=== PATIENT | male | born 1975 | race Caucasian/White ===

== ENCOUNTER 2018-03-02 10:33 | Inpatient (IN) | payer OTHER ==
[2018-03-02 10:45] VITALS: BMI 34.4
--- NOTE | 2018-03-02 11:23 | PDOC ---
History of Present Illness - History of Present Illness Initial Comments: 03/02/18 13:06 The patient is a 42 year old male with a significant PMH of HTN and HLD not currently on medications presenting with right arm weakness since awakening around 8:30 AM this morning. The patient states he woke up and was brushing his teeth when he noticed his R arm was 'all over the place', also when he said good morning to his , it sounded a bit off. Patient is also complaining of associated nausea, slight dizziness, and tightness behind the back of the neck. Patient reports that he was in his usual state of health yesterday. Patient denies any recent accidents or head trauma. The patient denies chest pain, shortness of breath, and headache. Denies fever, chills, vomit, diarrhea and constipation. Denies dysuria, frequency, urgency and hematuria. Allergies: NKA Past surgical history: None reported. Social history: No reported alcohol, drug, or cigarette use. PCP: Dr. Clark <Shawnee Little - Last Filed: 03/02/18 13:06> - General History Source: Patient Exam Limitations: No Limitations <Jony Flores - Last Filed: 03/02/18 18:30> - General Chief Complaint: CVA/TIA Stated Complaint: CVA/TIA Time Seen by Provider: 03/02/18 10:50 NIH Stroke Scale - Last Known Well Date/Time & Onset Date Last Known Well: 03/01/18 Time Last Known Well: 22:00 - Initial Evaluation Level of consciousness: Alert Ask patient the month and their age: Answers both correctly Ask patient to open & close eyes; make fist and let go: Obeys both correctly Best gaze (horizontal eye movement): Normal Visual field testing: No visual field loss Facial paresis (Show teeth/raise eyebrows/close eyes tight): Normal symmetrical movement Motor Function: Left Arm: Normal Motor Function: Right Arm: Normal (extends arm 90 (or 45) degrees for 10 seconds without drift Motor Function: Left Leg: Normal (extends leg 30 degrees for 5 seconds without drift) Motor Function: Right Leg: Normal (extends leg 30 degrees for 5 seconds without drift) Limb Ataxia: No ataxia Sensory(Use pinprick test arms,legs,trunk,face/side to side): Normal Best language (Describe picture, name items, read sentences): No Aphasia Dysarthria (read several words): Mild to moderate slurring of words Extinction and Inattention: No abnormality - Total Score NIH Stroke Scale Score: 1 <Jony Flores - Last Filed: 03/02/18 18:30> tPA Exclusion Checklist 0-3hr - Time Elapsed Date last known well: 03/01/18 Time last known well: 22:00 Elaspsed time: Day(s) and 20 Hour(s) and 29 Minutes - Thrombolytic Therapy Candidate Is the patient eligible for Thrombolytic Therapy?: No - Ineligibility reason(s) Reasons No tPA given: Outside of window - delayed arrival <Jony Flores - Last Filed: 03/02/18 18:30> Past History <Shawnee Little - Last Filed: 03/02/18 13:06> - Past Medical History COPD: No DVT: No HTN: Yes Hypercholesterolemia: Yes - Immunization History Immunization Up to Date: Yes - Suicide/Smoking/Psychosocial Hx Smoking History: Current every day smoker Number of Cigarettes Smoked Daily: 2 Information on smoking cessation initiated: No Hx Alcohol Use: Yes Drug/Substance Use Hx: No Substance Use Type: None <Jony Flores - Last Filed: 03/02/18 18:30> - Past Medical History Allergies/Adverse Reactions: Allergies Allergy/AdvReac Type Severity Reaction Status Date / Time Penicillins Allergy Verified 03/02/18 14:47 Home Medications: Ambulatory Orders NK [No Known Home Medication] 03/02/18 Review of Systems - Review of Systems Able to Perform ROS?: Yes Comments:: 03/02/18 13:06 "CONSTITUTIONAL: No reported: Fever, Chills, Diaphoresis, Generalized Weakness, Malaise, Loss of Appetite HEENT: No reported: Rhinorrhea, Nasal Congestion, Throat Pain, Throat Swelling, Difficulty Swallowing, Mouth Swelling, Ear Pain, Eye Pain, Visual Changes CARDIOVASCULAR: No reported: Chest Pain, Syncope, Palpitations, Irregular Heart Rate, Lightheadedness, Peripheral Edema RESPIRATORY: No reported: Cough, Shortness of Breath, SOB with Exertion, Orthopnea, Wheezing , Stridor, Hemoptysis GASTROINTESTINAL: No reported: Abdominal pain, Abdominal Distension, Vomiting, Diarrhea, Constipation, Melena, Hematochezia Reported: Nausea. GENITOURINARY: No reported: Dysuria, Frequency, Urgency, Hesitancy, Flank Pain, Genital Pain MUSCULOSKELETAL: No reported: Myalgia, Arthralgia, Joint Swelling, Back pain, Neck Pain SKIN: No reported: Rash, Itching, Pallor HEMEATOLOGIC/IMMUNOLOGIC: No reported: Easy Bleeding, Easy Bruising, Lymphadenopathy, Frequent infections ENDOCRINE: No reported: Unexplained Weight Gain, Unexplained Weight Loss, Heat Intolerance , Cold Intolerance NEUROLOGIC: No reported: Headache, Paresthesias, Lightheadedness, Unsteady Gait, Seizure, Mental Status Changes, Incontinence Reported: Dizziness. Right arm weakness. PSYCHIATRIC: No reported: Anxiety, Depression " <Shawnee Little - Last Filed: 03/02/18 13:06> *Physical Exam - Vital Signs Last Vital Signs Temp Pulse Resp BP Pulse Ox 98.6 F 84 18 152/105 100 03/02/18 10:41 03/02/18 10:41 03/02/18 10:41 03/02/18 10:41 03/02/18 10:41 - Physical Exam Comments: 03/02/18 13:07 "GENERAL: The patient is awake, alert, and fully oriented, Nontoxic - in no acute distress. HEAD: Normocephalic, atraumatic. EYES: extraocular movements intact, sclera anicteric, conjunctiva clear. ENT: Normal voice, Moist mucous membranes. NECK: Normal range of motion, supple LUNGS: Breath sounds equal, clear to auscultation bilaterally. No wheezes, no rhonchi, no rales. HEART: Regular rate and rhythm, without murmur, rub or gallop. ABDOMEN: Soft, nontender, No guarding, no rebound.No CVA tenderness EXTREMITIES: Normal range of motion, no edema. No cyanosis. No erythema, or tenderness. PSYCH: Normal mood, normal affect. SKIN: Warm, Dry, normal turgor NEURO: Mental status: The patient is oriented x3. Cranial nerves: Cranial nerves II through XII are intact, slight slurring of speech Motor: The upper extremities are 5 over 5 in all muscle groups. The lower extremities are 5 over 5 in all muscle groups. Negative pronator drift Sensation: Sensation is intact to light touch throughout. romberg negative Cerebellar: Efnejj-upmnre-vjfe is normal in both upper extremities. rapid alternating movements are normal. Gait: Normal. Heel and toe walking are normal." <Shawnee Little - Last Filed: 03/02/18 13:06> - Vital Signs Last Vital Signs Temp Pulse Resp BP Pulse Ox 98.6 F 84 18 152/105 100 03/02/18 10:41 03/02/18 10:41 03/02/18 10:41 03/02/18 10:41 03/02/18 10:41 <Jony Flores - Last Filed: 03/02/18 18:30> Heart Score/ECG Review - ECG Impressions Comment:: 03/02/18 18:29 Twelve-lead EKG was performed and reviewed by me. There is normal sinus rhythm with a normal rate. Rate of 78 The axis is normal. The intervals are normal. No ST-T wave changes suggestive of acute ischemia <Jony Flores - Last Filed: 03/02/18 18:30> ED Treatment Course - LABORATORY CBC & Chemistry Diagram: 03/02/18 12:00 03/02/18 12:02 - ADDITIONAL ORDERS Additional order review: Laboratory Results 03/02/18 03/02/18 12:36 12:00 PT with INR 11.60 INR 1.03 Urine Color Ltyellow Urine Appearance Clear Urine pH 5.0 Ur Specific [place] 1.016 Urine Protein Negative Urine Glucose (UA) Negative Urine Ketones Negative Urine Blood Negative Urine Nitrite Negative Urine Bilirubin Negative Urine Urobilinogen Negative Ur Leukocyte Esterase Negative 03/02/18 12:00 RBC 5.45 MCV 86.6 MCHC 34.1 RDW 13.6 MPV 9.1 Neutrophils % 60.0 Lymphocytes % 29.2 Monocytes % 6.8 Eosinophils % 2.5 Basophils % 1.5 <Shawnee Little - Last Filed: 03/02/18 13:06> - LABORATORY CBC & Chemistry Diagram: 03/02/18 12:00 03/02/18 12:02 - RADIOLOGY Radiology Studies Ordered: Category Date Time Status HEAD CT WITHOUT CONTRAST [CT] Stat CT Scan 03/02/18 11:12 Ordered CHEST X-RAY PORTABLE* [RAD] Stat Radiology 03/02/18 11:12 Ordered <Jony Flores - Last Filed: 03/02/18 18:30> Medical Decision Making - Medical Decision Making 03/02/18 11:19 42y M hx of htn, hl (not on meds) presents with R arm weaknes and dysarthria since awakening this morning, pt noticed it when he went to brush his teeth and say good morning to his . Pt notes he was fine last night. denies any other complaints including cp, sob, vision changes, fever/chills. pt notes mild tension on his posterios scalp. ?cva / tia pts speech seems slightly dysarhtric ( notes it is different) strength is symmetric, however his rapid alternating movements are a bit slower will obtain ct head, labs NIHSS = 1 <Jony Flores - Last Filed: 03/02/18 18:30> *DC/Admit/Observation/Transfer - Attestations Scribe Attestion: 03/02/18 13:07 Documentation prepared by Shawnee Little, acting as medical billing clerk for Jony Flores MD. <Shawnee Little - Last Filed: 03/02/18 13:06> - Discharge Dispostion Decision to Admit order: Yes <Jony Flores - Last Filed: 03/02/18 18:30> Diagnosis at time of Disposition: TIA (transient ischemic attack) - Discharge Dispostion Condition at time of disposition: Stable
[2018-03-02 12:12] LABS: BASO % 1.5 % (0-2.0); EOS % 2.5 % (0-4.5); HEMATOCRIT 47.2 % (35.4-49); HEMOGLOBIN 16.1 GM/dL (11.7-16.9); LYMPH % 29.2 % (8-40); MCH 29.5 pg (25.7-33.7); MCHC 34.1 g/dl (32.0-35.9); MEAN CELL VOLUME 86.6 fl (80-96); MEAN PLT VOLUME 9.1 fl (7.5-11.1); MONO % 6.8 % (3.8-10.2); PLATELET COUNT 266 K/MM3 (134-434); RBC 5.45 M/mm3 (4.00-5.60); RDW 13.6 % (11.9-15.9); WHITE BLOOD COUNT 8.3 K/mm3 (4.0-10.0)
[2018-03-02 12:28] LABS: INR 1.03 (0.83-1.09); PROTHROMBIN TIME (PATIENT) 11.6 SEC (9.7-13.0)
[2018-03-02 12:49] LABS: ALK PHOS 108 U/L (45-117); ANION GAP 8 MMOL/L (8-16); BILIRUBIN,TOTAL 0.5 mg/dL (0.2-1.0); BLOOD UREA NITROGEN 11 mg/dL (7-18); CALCIUM 8.9 mg/dL (8.5-10.1); CHLORIDE 104 mmol/L (98-107); CO2 25 mmol/L (21-32); CREATININE 0.9 mg/dL (0.7-1.3); GLUCOSE,RANDOM 94 mg/dL (74-106); SGPT/ALT 59 U/L (12-78); SODIUM 137 mmol/L (136-145); TOT PROT 8.2 g/dl (6.4-8.2)
[2018-03-02 12:58] LABS: URINE APPEARANCE CLEAR; URINE BILIRUBIN NEGATIVE (<2.0 mg/dL); URINE COLOR LTYELLOW; URINE GLUCOSE (UA) NEGATIVE (NEGATIVE); URINE KETONE NEGATIVE (NEGATIVE); URINE LEUK ESTERASE NEGATIVE (NEGATIVE); URINE NITRITE NEGATIVE (NEGATIVE); URINE PROTEIN NEGATIVE (NEGATIVE); URINE UROBILINOGEN NEGATIVE mg/dL (0.2-1.0)
[2018-03-02 13:14] LABS: MAGNESIUM 2.4 mg/dL (1.8-2.4); POTASSIUM 4.4 mmol/L (3.5-5.1); SGOT/AST 30 U/L (15-37)
[2018-03-02] MEDS ORDERED: ASPIRIN 81 MG CHEWABLE TABLETS PO ONE (13:49)
--- NOTE | 2018-03-02 14:47 | HP ---
Admitting History and Physical - Primary Care Physician PCP: Jay Clark - Admission Chief Complaint: My arm is weak History of Present Illness: Mr Akers is a very pleasant 42 year old male who comes in with arm weakness. He says he woke up this morning and his R arm was feeling weak and a little numb. He assumed he slept on it incorrectly and got up to brush his teeth. He said while brushing his teeth his arm continued to feel weak and also uncoordinated. He decided to go to work and while on the phone he noticed that his speech was different. He says he felt like he had difficulty forming the words and that his tongue was numb. He also had a moment of nausea without vomiting and lightheadedness with the nausea. This did not last long and resolved. He also says he feels a fullness in the back of his head. The weakness and difficulty speaking is currently there. He called to make an appointment with Dr Clark but was instructed to come here. Aside from this he is without complaint. He denies fevers, chills, passing out, facial droop, changes in vision or hearing, drooling, chest pain, shortness of breath, abdominal pain, difficulty or pain on urination, constipation, diarrhea, leg swelling, numbness, tingling, or weakness outside of his right arm. History Source: Patient Limitations to Obtaining History: No Limitations - Past Medical History Cardiovascular: Yes: HTN, Hyperlipdemia - Past Surgical History Past Surgical History: Yes: None - Smoking History Smoking history: Current every day smoker Aproximately how many cigarettes per day: 2 - Alcohol/Substance Use Hx Alcohol Use: Yes History of Substance Use: reports: None - Social History Usual Living Arrangement: Yes: With Spouse ADL: Independent History of Recent Travel: No Home Medications - Allergies Allergies/Adverse Reactions: Allergies Allergy/AdvReac Type Severity Reaction Status Date / Time Penicillins Allergy Verified 03/02/18 14:47 - Home Medications Home Medications: Ambulatory Orders NK [No Known Home Medication] 03/02/18 Family Disease History - Family Disease History Family Disease History: Diabetes: Mother, Heart Disease: Mother, CA: Mother, Other: Grandparent (aneurysm-), Father (aneurys-did at 53) Review of Systems Findings/Remarks: full review of systems obtained, as per HPI and otherwise negative Physical Examination Vital Signs: Vital Signs Temperature 37.0 C 08/22/18 10:41 Pulse Rate 84 03/02/18 10:41 Respiratory Rate 18 03/02/18 10:41 Blood Pressure 152/105 03/02/18 10:41 O2 Sat by Pulse Oximetry (%) 100 03/02/18 10:41 Constitutional: Yes: Well Nourished, No Distress, Calm Eyes: Yes: Conjunctiva Clear, EOM Intact, PERRL HENT: Yes: Atraumatic, Normocephalic Neck: Yes: Supple Cardiovascular: Yes: Regular Rate and Rhythm. No: Gallop, Murmur, Rub Respiratory: Yes: Regular, CTA Bilaterally. No: Rales, Rhonchi, Wheezes Gastrointestinal: Yes: Normal Bowel Sounds, Soft. No: Distention, Tenderness Extremities: Yes: WNL Edema: No Labs: CBC, BMP 03/02/18 12:00 03/02/18 12:02 Imaging - Results Chest X-ray: Report Reviewed, Image Reviewed Cat Scan: Report Reviewed, Image Reviewed Problem List - Problems (1) TIA (transient ischemic attack) Assessment/Plan: -patient presents with symptoms of TIA -possible acute CVA or atypical migraine -considering family history, will also consider aneurysm -admit to telemetry under observation -MRI ordered -will obtain MRA as well -ECHO and carotid ultrasound -no deficit noted, does not need speech therapy or physical therapy -continue aspirin Code(s): G45.9 - TRANSIENT CEREBRAL ISCHEMIC ATTACK, UNSPECIFIED (2) HTN (hypertension) Assessment/Plan: -currently diet controlled -monitor today, may need to start treatment Code(s): I10 - ESSENTIAL (PRIMARY) HYPERTENSION (3) HLD (hyperlipidemia) Assessment/Plan: -check lipid panel -start lipitor 10mg qhs Code(s): E78.5 - HYPERLIPIDEMIA, UNSPECIFIED
[2018-03-02] MEDS ORDERED: ASPIRIN 81 MG CHEWABLE TABLETS ONE (14:50)
--- NOTE | 2018-03-02 17:43 | EKG ---
Test Reason : Blood Pressure : / mmHG Vent. Rate : 078 BPM Atrial Rate : 078 BPM P-R Int : 158 ms QRS Dur : 096 ms QT Int : 376 ms P-R-T Axes : 055 005 005 degrees QTc Int : 428 ms NORMAL SINUS RHYTHM CANNOT RULE OUT ANTERIOR INFARCT , AGE UNDETERMINED ABNORMAL ECG NO PREVIOUS ECGS AVAILABLE Confirmed by MIKAYLA BROOKE MD ([id number]) on 03/02/2018 5:43:04 PM Referred By: Confirmed By:MIKAYLA BROOKE MD
--- NOTE | 2018-03-02 18:56 | CON.NEURO ---
Consult - Past Medical History Cardio/Vascular: Yes: HTN, Hyperlipdemia - Past Surgical History Past Surgical History: Yes: None - Alcohol/Substance Use Hx Alcohol Use: Yes History of Substance Use: reports: None - Smoking History Smoking history: Current every day smoker Aproximately how many cigarettes per day: 2 - Social History ADL: Independent History of Recent Travel: No Home Medications - Allergies Allergies/Adverse Reactions: Allergies Allergy/AdvReac Type Severity Reaction Status Date / Time Penicillins Allergy Verified 03/02/18 14:47 - Home Medications Home Medications: Ambulatory Orders NK [No Known Home Medication] 03/02/18 Family Disease History - Family Disease History Family Disease History: Diabetes: Mother, Heart Disease: Mother, CA: Mother, Other: Grandparent (aneurysm-), Father (aneurys-did at 53) Physical Exam-Neuro Vital Signs: Vital Signs Temperature 98.6 F 03/02/18 10:41 Pulse Rate 84 03/02/18 10:41 Respiratory Rate 18 03/02/18 10:41 Blood Pressure 152/105 03/02/18 10:41 O2 Sat by Pulse Oximetry (%) 100 03/02/18 10:41 Labs: CBC, BMP 03/02/18 12:00 03/02/18 12:02 INR, PTT INR 1.03 (0.83-1.09) 03/02/18 12:00 Assessment/Plan cc Right arm incoordination and slurring of slurring of speech since morning of February HPI 42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 Today morning he woke up with some incoordination of right arm and find it difficult to do brush his teeth and later he went to work and still felt that he was not 100 percent. He came to ed. He was interviewed with his , he also smokes. He still feel coordination and speech is not back to normal. He feel slight headhace back of his head. His father of brain aneurysm ( diagnosed at autopsy ) in [place]. PMH as above. SH smoker ROS,FH reviewed in chart - Allergies Allergies/Adverse Reactions: Allergies Allergy/AdvReac Type Severity Reaction Status Date / Time Penicillins Allergy Verified 03/02/18 14:47 Neurological Examination Alert oriented x 3, speech is normal ( he and his feels speech is not 100% back to normal and feel slurring of speech) he has no difficulty repeating , naming objects no face asymmetry, eomi pupils reactive moving all extremity slight dysmetria on right upper extremity sensation is normal BP at admission 152/101 , passed swallowing test ct unremarkable, waiting for mri of brain and mra Assessment Left mca stroke , Plan- mri of brain and mra -smoking cessation, life style modificaitons, stroke education - echo and carotid imaging - continue aspirin and statin - hold bp medicaiton, once after 24 , if bp remains high consider anti hypertensive medication - tele monitoring - dvt prophylaxis, and PT Thanking you so much Bertrand Almanza MD
--- NOTE | 2018-03-02 20:32 | ECHO ---
Name: SHARRON YEPEZ Exam:Adult Echocardiogram Study Date: 03/02/2018 03:04 PM Age: 42 yrs Reason For Study: TIA Height: 67 in Weight: 220 lb BSA: 2.1 m2 MMode/2D Measurements & Calculations IVSd: 0.98 cm Ao root diam: 3.5 cm LVIDd: 4.2 cm LA dimension: 3.1 cm LVIDs: 3.0 cm LVPWd: 0.85 cm EDV(Teich): 76.6 ml ESV(Teich): 35.7 ml Doppler Measurements & Calculations MV E max balta: 42.0 cm/sec Med Peak E' Balta: 7.2 cm/sec MV A max balta: 52.3 cm/sec Med E/e': 5.8 MV E/A: 0.80 Lat Peak E' Balta: 10.4 cm/sec Lat E/e': 4.0 Left Ventricle The left ventricular size, thickness and function are normal. The left ventricular ejection fraction is normal. Ejection Fraction = 50%. The transmitral spectral Doppler flow pattern is suggestive of impai red LV relaxation. No regional wall motion abnormalities noted. Right Ventricle The right ventricular systolic function is normal. Atria Normal left and right atrial size and function. Tricuspid Valve There is trace tricuspid regurgitation. Great Vessels The aortic root is normal size. Pericardium/Pleura There is no pericardial effusion. Interpretation Summary The left ventricular size, thickness and function are normal The left ventricular ejection fraction is normal. Ejection Fraction = 50%. The transmitral spectral Doppler flow pattern is suggestive of impaired LV relaxation. No regional wall motion abnormalities noted. The right ventricular systolic function is normal. Normal left and right atrial size and function. The aortic root is normal size. There is no pericardial effusion. Matthew Lui MD 03/02/2018 08:32 PM
[2018-03-02] MEDS: ATORVASTATIN CA 80 MG TABLET (FP) PO SCH (21:34)
[2018-03-02] MEDS ORDERED: ATORVASTATIN CA 10 MG TABLET (FP) PO SCH (22:00)
--- NOTE | 2018-03-03 06:52 | PN ---
Progress Note (short form) - Note Progress Note: NEUROSURGERY CONSULT DICTATED Chart reviewed Pt examined MRI/MRA/CT reviewed c/o arm weakness and numbness with decreased R UE coordination yesterday AM. He noticed that his speech was different, with difficulty forming the words and that his tongue was numb. Transient nausea. [place] fullness in the back of his head. No diplopia, balance problem, C/P, LOC, dyspnea. Family h/o aneurysm. Denies recent had/neck injury. Feels less head pressure today and speech feels normal to him this AM. R arm also better. WBC 8.3, Hgb 16.1, INR 1.03; BUN 11, Cr 0.[address]- no acute bleed, no fracture, no HCP Brain MRI- acute R cerebellar vermis ischemia, mild chronic periventricular dz; no obvious mass lesion, No HCP Brain MRA- an aneurysm, AVM, stenosis, or dissection Probable cardioembolic event or systemic conditions (HTN, hypercholesterolemia, etc) causing recent CVA given acute posterior circulation ischemia and prior supertenorial (anterior circulation) microvascular changes, in face of normal brain MRA Consider cardiac eval (echo) Cardiac risk factor modification- weight reduction, health diet, exercise PT for gait eval
[2018-03-03 08:03] LABS: EOS % 2.8 % (0-4.5); HEMATOCRIT 44.5 % (35.4-49); HEMOGLOBIN 15.1 GM/dL (11.7-16.9); LYMPH % 31.7 % (8-40); MCH 29.2 pg (25.7-33.7); MCHC 33.8 g/dl (32.0-35.9); MEAN CELL VOLUME 86.3 fl (80-96); MEAN PLT VOLUME 8.8 fl (7.5-11.1); NEUT % 57.5 % (42.8-82.8); PLATELET COUNT 236 K/MM3 (134-434); RBC 5.16 M/mm3 (4.00-5.60); RDW 13.6 % (11.9-15.9)
--- NOTE | 2018-03-03 08:08 | CONS ---
DATE OF CONSULTATION: DATE OF DICTATION: 03/03/2018 REQUESTING PHYSICIAN: Bertrand Donovan MD CHIEF COMPLAINT: CVA. HISTORY OF PRESENT ILLNESS: The patient is a 42-year-old right-handed male with a history of hypertension and hypercholesterolemia who had complained of transient increasing head fullness sensation, mild nausea, as well as transient decreased right arm dexterity and coordination with subjective weakness and numbness, who was admitted for further evaluation and treatment. He had a history of the aforementioned medical problems, and they are generally under good control by his report. He takes Lipitor at baseline. He works in construction. He denies any significant headache otherwise and has no vomiting, seizure activity, focal weakness. His symptoms have improved since his admission. CT scan initially was noncontributory which led to an MRI examination. PAST MEDICAL HISTORY: Significant for hypertension, hypercholesterolemia. MEDICATIONS: Lipitor. ALLERGIES: PENICILLIN. SOCIAL HISTORY: Does not smoke and only drinks alcohol socially. He works as a construction ironworker. He lives at home. REVIEW OF SYSTEMS: Otherwise negative for other major constitutional, head and neck, cardiovascular, pulmonary, gastrointestinal, genitourinary, endocrinological, neurological or psychological problems except for the above. PHYSICAL EXAMINATION:Vital Signs: Temperature is 97.7, blood pressure is 110/63 , pulse rate of 76. HEENT: Shows him to be normocephalic, atraumatic, anicteric. Neck: Supple with no carotid bruit. Coronary: Demonstrated a regular rate and rhythm. Lungs: Clear to auscultation bilaterally. Abdomen: Somewhat obese but benign. Extremities: Show no signs of DVT. Distal pulses are 2+. Neurologic: He is awake and alert and oriented x4. Cranial nerve examination is intact II-XII. Motor examination shows 5/5 strength without a drift. He had a sensory examination intact to light touch and vibratory sensation. Deep tendon reflexes were hyporeflexive throughout. There is no pathological long tract sign. Cerebellar examination demonstrates intact [id number] examination. He has good coordination, both upper and lower extremities. Gait is not tested for safety reasons. LABORATORY EXAMINATION: Shows a white blood cell count of 8.3, hemoglobin 16.1 and platelet count is 266,000. INR is 1.03. BUN is 11 and creatinine is 0.9. Sodium is 137, glucose is 94. LFTs are normal. Urinalysis was negative. CT scan of the head done yesterday demonstrated no acute intracranial pathology. Specifically there is no bleed, no fracture or midline mass effect, no hydrocephalus. MRI of the brain demonstrated acute right cerebellar vermis nonhemorrhagic infarct. There is also chronic infarct of the bilateral cerebral hemisphere likely secondary to hypertension or small-vessel disease. MRA of the brain does not demonstrate any intracranial aneurysm or AVM. There is no vertebral artery dissection. There is no significant vascular stenosis. IMPRESSION: 1. Acute right cerebellar vermis ischemia. 2. Chronic mild periventricular small-vessel disease. 3. Mild obesity and hypertension. 4. Hypercholesterolemia. RECOMMENDATIONS: The patient presents with acute onset of decreased right upper extremity coordination with subjective weakness and numbness. He also had some fullness sensation in the back of his head as well as mild nausea. Most of the symptoms have subsided by now. Presently, he is neurologically nonfocal. He has been put on aspirin. In the future continued future monitoring of his neurological condition is recommended. Given the reality that he had an acute posterior circulation ischemic event as well as evidence of supratentorial bilateral white-matter disease consistent with small-vessel disease, modification of cardioembolic risk factor, cardiac condition and his systemic condition is recommended. Cardiology evaluation is recommended with possible echocardiogram to rule out cardioembolic event. He should also control his blood pressure and cholesterol with a healthy diet and lifestyle. No neurosurgical intervention is indicated or recommended at this time. The patient does mention that his father has suffered from a cerebral aneurysm bleed. However, there is no evidence of such on his MRI/MRA at this time. The above was discussed with the patient at bedside in detail. All questions were answered. He should continue to follow outpatient with neurology service. PATRICE HENDERSON M.D. [id number] [facility]A
[2018-03-03 08:29] LABS: ANION GAP 10 MMOL/L (8-16); BLOOD UREA NITROGEN 12 mg/dL (7-18); CALCIUM 8.6 mg/dL (8.5-10.1); CHLORIDE 105 mmol/L (98-107); CHOLESTEROL 208 mg/dL (50-200); CO2 27 mmol/L (21-32); CREATININE 0.9 mg/dL (0.7-1.3); GLUCOSE,RANDOM 89 mg/dL (74-106); MAGNESIUM 2.4 mg/dL (1.8-2.4); PHOSPHOROUS 3.5 mg/dL (2.5-4.9); SODIUM 142 mmol/L (136-145); TRIGLYCERIDES 194 mg/dL (35-160)
[2018-03-03 08:38] LABS: HDL CHOLESTEROL 33 mg/dL (40-60)
--- NOTE | 2018-03-03 10:40 | PN ---
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 Today morning he woke up with some incoordination of right arm and find it difficult to do brush his teeth and later he went to work and still felt that he was not 100 percent. Patient has right cerebellar stroke and saw neurosurery. Neurological Examination Alert oriented x 3, speech is normal ( he and his feels speech is not 100% back to normal and feel slurring of speech) he has no difficulty repeating , naming objects no face asymmetry, eomi pupils reactive moving all extremity slight dysmetria on right upper extremity sensation is normal BP at admission 152/101 , passed swallowing test ct unremarkable, mri of brain showed right crebellar stroke and white matter disease mra is noraml Assessment Right cerebellar stroke , risk factor include htn,hld and smoking and family history Plan- -smoking cessation, life style modificaitons, stroke education - carotid ultrasound pending - continue aspirin and statin - spoke to primary team to consider cardiology consult for possible loop recording - dvt prophylaxis, and PT Thanking you so much Bertrand Almanza MD
[2018-03-03] MEDS: ASPIRIN COATED 81 MG TABLET.EC PO SCH (10:46)
--- NOTE | 2018-03-03 12:32 | PN ---
Progress Note, Physician Chief Complaint: Mr Akers says he is feeling better. Denies cp, sob, n/v. Says speech is back to normal and weakness almost fully resolved. - Current Medication List Current Medications: Active Medications Aspirin (Ecotrin -) 81 mg PO DAILY [facility] Last Admin: 03/03/18 10:46 Dose: 81 mg Atorvastatin Calcium (Lipitor -) 80 mg PO HS [facility] Last Admin: 03/02/18 21:34 Dose: 80 mg - Objective Vital Signs: Vital Signs Temperature -72.1 C L 03/03/18 05:32 Pulse Rate 76 03/03/18 05:32 Respiratory Rate 20 03/03/18 05:32 Blood Pressure 110/63 03/03/18 05:32 O2 Sat by Pulse Oximetry (%) 99 03/02/18 22:00 Constitutional: Yes: No Distress, Calm, Obese Cardiovascular: Yes: Regular Rate and Rhythm. No: Gallop, Murmur, Rub Respiratory: Yes: Regular, CTA Bilaterally. No: Rales, Rhonchi, Wheezes Gastrointestinal: Yes: Normal Bowel Sounds, Soft. No: Distention, Tenderness Extremities: Yes: WNL Edema: No Labs: CBC, BMP 03/03/18 07:42 03/03/18 07:42 INR, PTT INR 1.03 (0.83-1.09) 03/02/18 12:00 Problem List - Problems (1) CVA (cerebral vascular accident) Code(s): I63.9 - CEREBRAL INFARCTION, UNSPECIFIED Qualifiers: CVA mechanism: embolism Precerebral and cerebral artery: cerebellar artery Laterality of affected vessel: right Qualified Code(s): I63.441 - Cerebral infarction due to embolism of right cerebellar artery (2) HTN (hypertension) Code(s): I10 - ESSENTIAL (PRIMARY) HYPERTENSION (3) HLD (hyperlipidemia) Code(s): E78.5 - HYPERLIPIDEMIA, UNSPECIFIED Assessment/Plan (1) Acute CVA Assessment/Plan: -MRI read and showing acute CVA -agree with max dose lipitor -continue aspirin -PT ordered -continue telemetry -will set up outpatient cardiology consult for monitor to evaluate for paroxysmal atrial fibrillation -diet and exercise discussed Code(s): I63.441 (2) HTN (hypertension) Assessment/Plan: -well controlled -suspect secondary to stress -no current need to start hypertensive medications Code(s): I10 - ESSENTIAL (PRIMARY) HYPERTENSION (3) HLD (hyperlipidemia) Assessment/Plan: -LDL elevated -max dose lipitor Code(s): E78.5 - HYPERLIPIDEMIA, UNSPECIFIED
--- NOTE | 2018-03-03 14:01 | CON.CARD ---
Consult Consult Specialty:: Cardiology Referred by:: Zion Reason for Consultation:: stroke - History of Present Illness Chief Complaint: stroke History of Present Illness: 42M HTN, HLD p/w stroke. Had r arm weakness/numbness, speech difficulty, tongue numbness, nausea. No chest pain, palpitations, dyspnea, orthopnea, PND, edema. CT head neg, MRI/MRA brain showed acute R cerebellar infarct and small vessel infarctions in white matter likely HTN vs atherosclerotic. Carotid ultrasound unremarkable, has been on tele no events, echo low normal EF with no valvular dz. On aspirin and lipitor. Right hand still feels a little weak but symptoms otherwise resolved, speech has improved. - Past Medical History Cardio/Vascular: Yes: HTN, Hyperlipdemia - Past Surgical History Past Surgical History: Yes: None - Alcohol/Substance Use Hx Alcohol Use: Yes History of Substance Use: reports: None - Smoking History Smoking history: Current some day smoker Have you smoked in the past 12 months: Yes Aproximately how many cigarettes per day: 2 - Social History ADL: Independent History of Recent Travel: No Home Medications - Allergies Allergies/Adverse Reactions: Allergies Allergy/AdvReac Type Severity Reaction Status Date / Time Penicillins Allergy Verified 03/02/18 14:47 - Home Medications Home Medications: Ambulatory Orders NK [No Known Home Medication] 03/02/18 Family Disease History - Family Disease History Family Disease History: Diabetes: Mother, Heart Disease: Mother, CA: Mother, Other: Grandparent (aneurysm-), Father (aneurys-did at 53) Review of Systems - Review of Systems Constitutional: reports: No Symptoms Eyes: reports: No Symptoms HENT: reports: No Symptoms Neck: reports: No Symptoms Cardiovascular: reports: No Symptoms Respiratory: reports: No Symptoms Gastrointestinal: reports: No Symptoms Genitourinary: reports: No Symptoms Musculoskeletal: reports: No Symptoms Integumentary: reports: No Symptoms Neurological: reports: Numbness, Weakness Endocrine: reports: No Symptoms Hematology/Lymphatic: reports: No Symptoms Psychiatric: reports: No Symptoms Vital Signs: Vital Signs Temperature 98.0 F 03/03/18 10:00 Pulse Rate 71 03/03/18 10:00 Respiratory Rate 20 03/03/18 10:00 Blood Pressure 118/64 03/03/18 10:00 O2 Sat by Pulse Oximetry (%) 98 03/03/18 10:00 Constitutional: Yes: No Distress, Calm Eyes: Yes: Conjunctiva Clear, EOM Intact HENT: Yes: Atraumatic, Normocephalic Neck: Yes: Supple, Trachea Midline Respiratory: Yes: Regular, CTA Bilaterally Gastrointestinal: Yes: Normal Bowel Sounds, Soft Cardiovascular: Yes: Regular Rate and Rhythm JVD: No Heart Sounds: Yes: S1, S2 Edema: No Peripheral Pulses: 2+ Left Doralis Pedis, 2+ Right Dorsalis Pedis Integumentary: Yes: WNL Neurological: Yes: Alert, Oriented Psychiatric: Yes: Alert, Oriented - Other Data Labs, Other Data: CBC, BMP 03/03/18 07:42 03/03/18 07:42 INR, PTT INR 1.03 (0.83-1.09) 03/02/18 12:00 Assessment/Plan EKG: sinus rhythm, no ischemic changes Echo: EF 50%, impaired relaxation, no sig valve dz Carotid dopplers: LICA 50-70% stenosis, consider CTA or MRA neck to further eval tele: sinus 60s, brief episode SB 49 bpm overnight 42M h/o HTN, HLD p/w acute stroke Acute stroke - echo unremarkable for stroke etiology - tele no events, will pursue outpatient event monitor or ILR for further evaluation - carotid ultrasound with 50-70% stenosis, would consider further imaging with CTA or MRA as above, HTN - controlled here, not on meds, monitor HLD - agree with high dose statin, continue
[2018-03-03] MEDS: ATORVASTATIN CA 80 MG TABLET (FP) PO SCH (21:16)
[2018-03-04 07:25] LABS: EOS % 2.9 % (0-4.5); HEMOGLOBIN 15.6 GM/dL (11.7-16.9); LYMPH % 29.9 % (8-40); MCH 29.2 pg (25.7-33.7); MEAN CELL VOLUME 85.8 fl (80-96); MEAN PLT VOLUME 8.7 fl (7.5-11.1); MONO % 8.1 % (3.8-10.2); NEUT % 58.1 % (42.8-82.8); PLATELET COUNT 240 K/MM3 (134-434); RBC 5.36 M/mm3 (4.00-5.60); RDW 13.9 % (11.9-15.9); WHITE BLOOD COUNT 8.9 K/mm3 (4.0-10.0)
[2018-03-04 07:38] LABS: ANION GAP 6 MMOL/L (8-16); BLOOD UREA NITROGEN 14 mg/dL (7-18); CALCIUM 8.5 mg/dL (8.5-10.1); CHLORIDE 104 mmol/L (98-107); CO2 30 mmol/L (21-32); CREATININE 1.1 mg/dL (0.7-1.3); GLUCOSE,RANDOM 94 mg/dL (74-106); MAGNESIUM 2.4 mg/dL (1.8-2.4); PHOSPHOROUS 3.9 mg/dL (2.5-4.9); SODIUM 140 mmol/L (136-145)
--- NOTE | 2018-03-04 07:48 | PN ---
Progress Note (short form) - Note Progress Note: NEUROSURGERY No new complaint PE: AF, VSS General- unremarkable CN- intact; Motor-5/5; Sensation- intact LT; Cerebellar- intact B FTN Carotid doppler- L ICA 50+% stenosis head CT- no acute bleed, no fracture, no HCP Brain MRI- acute R cerebellar vermis ischemia, mild chronic periventricular dz; no obvious mass lesion, No HCP Brain MRA- an aneurysm, AVM, stenosis, or dissection R/o cardioembolic event or systemic conditions (HTN, hypercholesterolemia, etc) causing recent CVA given acute posterior circulation ischemia and prior supertenorial (anterior circulation) microvascular changes, in face of normal brain MRA Cardiology input noted Cardiac risk factor modification- weight reduction, health diet, exercise PT for gait eval
--- NOTE | 2018-03-04 09:21 | PN ---
Progress Note (short form) - Note Progress Note: cc: stroke s: no chest pain, dizziness, palps, edema. right arm weakness improving. Current Medications Aspirin (Ecotrin -) 81 mg PO DAILY [facility] Last Admin: 03/04/18 09:54 Dose: 81 mg Atorvastatin Calcium (Lipitor -) 80 mg PO HS [facility] Last Admin: 03/03/18 21:16 Dose: 80 mg Vital Signs Period Temp Pulse Resp BP Sys/Chung Pulse Ox Last 24 Hr 97.8 F-98.4 F 63-73 19-20 116-126/64-75 95-98 Constitutional: Yes: No Distress, Calm Eyes: Yes: Conjunctiva Clear, EOM Intact HENT: Yes: Atraumatic, Normocephalic Neck: Yes: Supple, Trachea Midline Respiratory: Yes: Regular, CTA Bilaterally Gastrointestinal: Yes: Normal Bowel Sounds, Soft Cardiovascular: Yes: Regular Rate and Rhythm JVD: No Heart Sounds: Yes: S1, S2 Edema: No Peripheral Pulses: 2+ Left Doralis Pedis, 2+ Right Dorsalis Pedis Integumentary: Yes: WNL Neurological: Yes: Alert, Oriented Psychiatric: Yes: Alert, Oriented Assessment/Plan EKG: sinus rhythm, no ischemic changes Echo: EF 50%, impaired relaxation, no sig valve dz Carotid dopplers: LICA 50-70% stenosis, consider CTA or MRA neck to further eval tele: sinus 60s, no events 42M h/o HTN, HLD p/w acute stroke Acute stroke - echo unremarkable for stroke etiology - tele no events, will pursue outpatient event monitor or ILR for further evaluation, follow up with cardiology - carotid ultrasound with 50-70% stenosis, CTA neck report is pending HTN - controlled here, not on meds, monitor HLD - agree with high dose statin, continue
[2018-03-04] MEDS: ASPIRIN COATED 81 MG TABLET.EC PO SCH (09:54)
--- NOTE | 2018-03-04 10:05 | PN ---
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 Today morning he woke up with some incoordination of right arm and find it difficult to do brush his teeth and later he went to work and still felt that he was not 100 percent. Patient has right cerebellar stroke and saw neurosurery. his carotid ultraound is showing moderate stenosis on left side. cta of neck is pending Neurological Examination Alert oriented x 3, speech is normal ( he and his feels speech is not 100% back to normal and feel slurring of speech) he has no difficulty repeating , naming objects no face asymmetry, eomi pupils reactive moving all extremity sensation is normal BP at admission 152/101 , passed swallowing test he feels completely normal ct unremarkable, mri of brain showed right crebellar stroke and white matter disease mra is noraml carotid ultrasound left moderate stenosis Assessment Right cerebellar stroke , risk factor include htn,hld and smoking and family history , back to normal Plan- -smoking cessation, life style modificaitons, stroke education - cartotid ultrasound showed left ica moderate stenosis, it would be on asymptomatic side and stroke is in post circulation of right side. CTA of neck is pending. - continue aspirin and statin - dvt prophylaxis, and PT - he would stay for the weekend as there is cerebellar stroke , to watch him , can be discharged on wednesday , if he remains stable and outpatient PT Thanking you so much Bertrand Almanza MD
--- NOTE | 2018-03-04 13:22 | PN ---
Progress Note, Physician Chief Complaint: Pt sitting in chair in no acute distress. reports he is eating/ambulating without difficulty, feels almost back at baseline. Denies any numbness/tingling , chest pain, sob, n/v/d - Current Medication List Current Medications: Active Medications Aspirin (Ecotrin -) 81 mg PO DAILY [facility] Last Admin: 03/04/18 09:54 Dose: 81 mg Atorvastatin Calcium (Lipitor -) 80 mg PO HS [facility] Last Admin: 03/03/18 21:16 Dose: 80 mg - Objective Vital Signs: Vital Signs Temperature 98 F 03/04/18 09:53 Pulse Rate 76 03/04/18 09:53 Respiratory Rate 20 03/04/18 09:53 Blood Pressure 130/79 03/04/18 09:53 O2 Sat by Pulse Oximetry (%) 95 03/04/18 09:00 Constitutional: Yes: Well Nourished, No Distress, Calm Eyes: Yes: WNL. No: Diplopia HENT: Yes: WNL. No: Atraumatic Cardiovascular: Yes: WNL, Regular Rate and Rhythm. No: Gallop, Murmur Respiratory: Yes: WNL, Regular, CTA Bilaterally. No: Accessory Muscle Use, SOB , Tachypnea, Wheezes Gastrointestinal: Yes: WNL, Normal Bowel Sounds, Soft. No: Distention, Tenderness Genitourinary: Yes: WNL Musculoskeletal: Yes: WNL Extremities: Yes: WNL Edema: No Neurological: Yes: WNL, Alert, Oriented. No: Aphasia, Ataxia, Dysarthria, Paresthesia, Tingling, Tremors Labs: CBC, BMP 03/04/18 07:00 03/04/18 07:00 INR, PTT INR 1.03 (0.83-1.09) 03/02/18 12:00 Assessment/Plan (1) Acute CVA Assessment/Plan: -MRI- acute cerebellar stroke -reports right arm weakness resolved, denies any current symptoms -continue aspirin/high dose statin -continue PT -continue telemetry monitoring -out pt f/u with cardiology to evaluate for paroxysmal atrial fibrillation -life style modifications such as smoking cessation, diet and exercise discussed with pt -neurology/cardiology following Code(s): I63.441 (2) HTN (hypertension) Assessment/Plan: -well controlled -no need to start antihypertensive agents at the moment -close monitoring of bp control outpt -low na diet -cardiology following Code(s): I10 - ESSENTIAL (PRIMARY) HYPERTENSION (3) HLD (hyperlipidemia) Assessment/Plan: -LDL elevated -max dose lipitor -heart healthy diet -monitor for side effects Code(s): E78.5 - HYPERLIPIDEMIA, UNSPECIFIED (4) Left carotid stenosis Assessment/Plan: Left ICA stenosis 50-70% on ultrasound CTA of neck pending vascular surgery consult if worsening stenosis Code(s): I65.22 - OCCLUSION AND STENOSIS OF LEFT CAROTID ARTERY Dispo: Home with outpt PT when neurology cleared
[2018-03-04] MEDS: ATORVASTATIN CA 80 MG TABLET (FP) PO SCH (21:04)
--- NOTE | 2018-03-05 07:24 | PN ---
Progress Note (short form) - Note Progress Note: NEUROSURGERY No new complaint at bedside Feels well PE: AF, VSS General- unremarkable CN- intact; Motor-5/5; Sensation- intact LT; Cerebellar- intact B FTN Carotid doppler- L ICA 50+% stenosis head CT- no acute bleed, no fracture, no HCP Brain MRI- acute R cerebellar vermis ischemia, mild chronic periventricular dz; no obvious mass lesion, No HCP Brain MRA- an aneurysm, AVM, stenosis, or dissection Acute R cerebellar vermis ischemia, little chance for dramatic deterioration like with PICA infarcts Neurology input noted Cardiology input noted Cardiac risk factor modification- weight reduction, health diet, smoking cessation, exercise PT for gait
--- NOTE | 2018-03-05 07:50 | PN ---
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 Patient has right cerebellar stroke and saw neurosurery. cta did not confirmed any stenosis Neurological Examination Alert oriented x 3, speech is normal ( he and his feels speech is not 100% back to normal and feel slurring of speech) he has no difficulty repeating , naming objects no face asymmetry, eomi pupils reactive moving all extremity He feels completely normal, for coordination and speech ct unremarkable, mri of brain showed right crebellar stroke and white matter disease mra is noraml carotid ultrasound left moderate stenosis , CTA is normal Assessment Right cerebellar stroke , risk factor include htn,hld and smoking and family history , back to normal Plan- -smoking cessation, life style modificaitons, stroke education - CTA report noted, services coordinator following patient - continue aspirin and statin - dvt prophylaxis, and PT - can be discharged on wednesday. - He is asking a note to given to postpone some court date. I would give letter indicating he is advised 1-2 week rest. Thanking you so much Bertrand Almanza MD
[2018-03-05 08:51] LABS: CHLORIDE 104 mmol/L (98-107); POTASSIUM 4.3 mmol/L (3.5-5.1); SODIUM 142 mmol/L (136-145)
[2018-03-05 09:24] LABS: ALBUMIN 3.8 g/dl (3.4-5.0); ALK PHOS 103 U/L (45-117); ANION GAP 11 MMOL/L (8-16); BILIRUBIN,TOTAL 0.9 mg/dL (0.2-1.0); BLOOD UREA NITROGEN 14 mg/dL (7-18); CALCIUM 8.9 mg/dL (8.5-10.1); CO2 27 mmol/L (21-32); CREATININE 1.1 mg/dL (0.7-1.3); GLUCOSE,RANDOM 86 mg/dL (74-106); SGOT/AST 26 U/L (15-37); SGPT/ALT 53 U/L (12-78); TOT PROT 7.5 g/dl (6.4-8.2)
--- NOTE | 2018-03-05 10:19 | PN ---
Progress Note (short form) - Note Progress Note: cc: stroke s: no chest pain, dizziness, palps, edema. feels at baseline Current Medications Aspirin (Ecotrin -) 81 mg PO DAILY [facility] Last Admin: 03/04/18 09:54 Dose: 81 mg Atorvastatin Calcium (Lipitor -) 80 mg PO HS [facility] Last Admin: 03/04/18 21:04 Dose: 80 mg Vital Signs Period Temp Pulse Resp BP Sys/Chung Pulse Ox Last 24 Hr 97.9 F-98.1 F 60-79 16-20 108-137/74-78 95 Constitutional: Yes: No Distress, Calm Eyes: Yes: Conjunctiva Clear, EOM Intact HENT: Yes: Atraumatic, Normocephalic Neck: Yes: Supple, Trachea Midline Respiratory: Yes: Regular, CTA Bilaterally Gastrointestinal: Yes: Normal Bowel Sounds, Soft Cardiovascular: Yes: Regular Rate and Rhythm JVD: No Heart Sounds: Yes: S1, S2 Edema: No Peripheral Pulses: 2+ Left Doralis Pedis, 2+ Right Dorsalis Pedis Integumentary: Yes: WNL Neurological: Yes: Alert, Oriented Psychiatric: Yes: Alert, Oriented Assessment/Plan EKG: sinus rhythm, no ischemic changes Echo: EF 50%, impaired relaxation, no sig valve dz Carotid dopplers: LICA 50-70% stenosis, consider CTA or MRA neck to further eval tele: sinus 60s, no events CTA neck: no ICA stenosis 42M h/o HTN, HLD p/w acute stroke Acute stroke - echo unremarkable for stroke etiology - tele no events, will pursue outpatient event monitor or ILR for further evaluation, follow up with cardiology - continue aspirin, statin - carotid ultrasound with 50-70% stenosis, CTA neck no significant stenosis HTN - controlled here, not on meds, monitor HLD - agree with high dose statin, continue
[2018-03-05] MEDS: ASPIRIN COATED 81 MG TABLET.EC PO SCH (10:40)
--- NOTE | 2018-03-05 11:10 | PN ---
Progress Note, Physician Chief Complaint: No complaints, ambulating comfortably - Current Medication List Current Medications: Active Medications Aspirin (Ecotrin -) 81 mg PO DAILY [facility] Last Admin: 03/05/18 10:40 Dose: 81 mg Atorvastatin Calcium (Lipitor -) 80 mg PO HS [facility] Last Admin: 03/04/18 21:04 Dose: 80 mg - Objective Vital Signs: Vital Signs Temperature 98.1 F 03/05/18 06:00 Pulse Rate 62 03/05/18 06:00 Respiratory Rate 20 03/05/18 06:00 Blood Pressure 112/75 03/05/18 06:00 O2 Sat by Pulse Oximetry (%) 95 03/04/18 21:00 HR Constitutional: Yes: Well Nourished, No Distress Eyes: Yes: Conjunctiva Clear, EOM Intact HENT: Yes: Atraumatic, Normocephalic Neck: Yes: Supple, Trachea Midline. No: Decreased ROM, Lymphadenopathy Cardiovascular: Yes: Regular Rate and Rhythm, S1, S2. No: JVD, Gallop, Murmur Respiratory: Yes: Regular, CTA Bilaterally Gastrointestinal: Yes: Normal Bowel Sounds, Soft Edema: No Peripheral Pulses: Left Doralis Pedis: 2+, Right Dorsalis Pedis: 2+ Neurological: Yes: Alert, Oriented, Cran Nerves II-XII Intact. No: Aphasia, Asterixis, Ataxia Labs: CBC, BMP 03/04/18 07:00 03/05/18 06:40 INR, PTT INR 1.03 (0.83-1.09) 03/02/18 12:00 Problem List - Problems (1) CVA (cerebral vascular accident) Assessment/Plan: Acute CVa improving with time evaluated by Neurology and Cardiology, most likely embolic ECHO normal cont Statin and ASA Code(s): I63.9 - CEREBRAL INFARCTION, UNSPECIFIED Qualifiers: CVA mechanism: embolism Precerebral and cerebral artery: cerebellar artery Laterality of affected vessel: right Qualified Code(s): I63.441 - Cerebral infarction due to embolism of right cerebellar artery (2) Left carotid stenosis Assessment/Plan: Non critical cont ASA and Statin Code(s): I65.22 - OCCLUSION AND STENOSIS OF LEFT CAROTID ARTERY (3) HLD (hyperlipidemia) Assessment/Plan: Cont statin Code(s): E78.5 - HYPERLIPIDEMIA, UNSPECIFIED (4) HTN (hypertension) Assessment/Plan: at target Code(s): I10 - ESSENTIAL (PRIMARY) HYPERTENSION
[2018-03-05] MEDS: ATORVASTATIN CA 80 MG TABLET (FP) PO SCH (21:04)
--- NOTE | 2018-03-06 07:22 | PN ---
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 Patient has right cerebellar stroke and saw neurosurery. cta did not confirmed any stenosis . he is feeling much better and back to normal Neurological Examination Alert oriented x 3, speech is normal ( he and his feels speech is not 100% back to normal and feel slurring of speech) he has no difficulty repeating , naming objects no face asymmetry, eomi pupils reactive moving all extremity He feels completely normal, for coordination and speech ct unremarkable, mri of brain showed right crebellar stroke and white matter disease mra is noraml carotid ultrasound left moderate stenosis , CTA is normal Assessment Right cerebellar stroke , risk factor include htn,hld and smoking and family history , back to normal Plan- -smoking cessation, life style modificaitons, stroke education - continue aspirin and statin - dvt prophylaxis, and PT - can be discharged on wednesday. - He is asking a note to given to postpone some court date. I would give letter indicating he is advised 1-2 week rest. feel free to call me if any question Thanking you so much Bertrand Almanza MD
[2018-03-06] MEDS: ASPIRIN COATED 81 MG TABLET.EC PO SCH (09:39)
--- NOTE | 2018-03-06 10:38 | PN ---
Progress Note (short form) - Note Progress Note: NEUROSURGERY No new complaint No H/A, N/V, ataxia, dexterity issues at bedside Feels well PE: AF, VSS General- unremarkable CN- intact; Motor-5/5; Sensation- intact LT; Cerebellar- intact B FTN Carotid doppler- L ICA 50+% stenosis; though CTA normal head CT- no acute bleed, no fracture, no HCP Brain MRI- acute R cerebellar vermis ischemia, mild chronic periventricular dz; no obvious mass lesion, No HCP Brain MRA- an aneurysm, AVM, stenosis, or dissection Acute R cerebellar vermis ischemia, little chance for dramatic deterioration like with PICA infarcts Cardiac risk factor modification- weight reduction, health diet, smoking cessation, exercise PT for gait Stable neurologically Outpatient neurology f/u for chronic cerebrovascular dz management
--- NOTE | 2018-03-06 10:45 | PN ---
Progress Note, Physician Chief Complaint: No new complaints, ambulating comfortably - Current Medication List Current Medications: Active Medications Aspirin (Ecotrin -) 81 mg PO DAILY [facility] Last Admin: 03/06/18 09:39 Dose: 81 mg Atorvastatin Calcium (Lipitor -) 80 mg PO HS [facility] Last Admin: 03/05/18 21:04 Dose: 80 mg - Objective Vital Signs: Vital Signs Temperature 98.2 F 03/06/18 06:00 Pulse Rate 81 03/06/18 06:00 Respiratory Rate 20 03/06/18 06:00 Blood Pressure 103/73 03/06/18 06:00 O2 Sat by Pulse Oximetry (%) 97 03/05/18 21:00 Constitutional: Well Nourished, No Distress HENT: Conjunctiva Clear, EOM Intact, Atraumatic, Normocephalic Neck: Yes: Supple, Trachea Midline. No: Decreased ROM, Lymphadenopathy Cardiovascular: Yes: Regular Rate and Rhythm, S1, S2. No: JVD, Gallop, Murmur Respiratory: Yes: Regular, CTA Bilaterally Gastrointestinal: Yes: Normal Bowel Sounds, Soft EXTERMITIES: No Edema, Peripheral Pulses: Left Doralis Pedis: 2+, Right Dorsalis Pedis: 2+ Neurological: Alert, Oriented, Cran Nerves II-XII Intact. No: Aphasia, Asterixis, Ataxia Labs: CBC, BMP 03/04/18 07:00 03/05/18 06:40 INR, PTT INR 1.03 (0.83-1.09) 03/02/18 12:00 Problem List - Problems (1) CVA (cerebral vascular accident) Assessment/Plan: Acute CVa improving with time evaluated by Neurology and Cardiology, most likely embolic ECHO normal cont Statin and ASA Code(s): I63.9 - CEREBRAL INFARCTION, UNSPECIFIED Qualifiers: CVA mechanism: embolism Precerebral and cerebral artery: cerebellar artery Laterality of affected vessel: right Qualified Code(s): I63.441 - Cerebral infarction due to embolism of right cerebellar artery (2) Left carotid stenosis Assessment/Plan: Non critical cont ASA and Statin Code(s): I65.22 - OCCLUSION AND STENOSIS OF LEFT CAROTID ARTERY (3) HLD (hyperlipidemia) Assessment/Plan: Cont statin Code(s): E78.5 - HYPERLIPIDEMIA, UNSPECIFIED (4) HTN (hypertension) Assessment/Plan: at target Code(s): I10 - ESSENTIAL (PRIMARY) HYPERTENSION
--- NOTE | 2018-03-06 11:35 | PN ---
Progress Note (short form) - Note Progress Note: cc: stroke s: no chest pain, dizziness, palps, edema. Current Medications Aspirin (Ecotrin -) 81 mg PO DAILY [facility] Last Admin: 03/06/18 09:39 Dose: 81 mg Atorvastatin Calcium (Lipitor -) 80 mg PO HS [facility] Last Admin: 03/05/18 21:04 Dose: 80 mg Vital Signs Period Temp Pulse Resp BP Sys/Chung Pulse Ox Last 24 Hr 97.5 F-98.2 F 64-81 16-20 103-122/70-77 96-97 Constitutional: Yes: No Distress, Calm Eyes: Yes: Conjunctiva Clear, EOM Intact HENT: Yes: Atraumatic, Normocephalic Neck: Yes: Supple, Trachea Midline Respiratory: Yes: Regular, CTA Bilaterally Gastrointestinal: Yes: Normal Bowel Sounds, Soft Cardiovascular: Yes: Regular Rate and Rhythm JVD: No Heart Sounds: Yes: S1, S2 Edema: No Peripheral Pulses: 2+ Left Doralis Pedis, 2+ Right Dorsalis Pedis Integumentary: Yes: WNL Neurological: Yes: Alert, Oriented Psychiatric: Yes: Alert, Oriented Assessment/Plan EKG: sinus rhythm, no ischemic changes Echo: EF 50%, impaired relaxation, no sig valve dz Carotid dopplers: LICA 50-70% stenosis, consider CTA or MRA neck to further eval tele: sinus 60s, no events CTA neck: no ICA stenosis 42M h/o HTN, HLD p/w acute stroke Acute stroke - echo unremarkable for stroke etiology - tele no events, will pursue outpatient event monitor or ILR for further evaluation, follow up with cardiology - continue aspirin, statin - carotid ultrasound with 50-70% stenosis, CTA neck no significant stenosis - patient feels back to baseline HTN - controlled here, not on meds, monitor HLD - agree with high dose statin, continue
[2018-03-06] MEDS: ATORVASTATIN CA 80 MG TABLET (FP) PO SCH (22:03)
--- NOTE | 2018-03-07 09:02 | PN ---
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 Patient has right cerebellar stroke and saw neurosurery. cta did not confirmed any stenosis . he is feeling much better and back to normal SUBJECTIVE: He has been stable over the weekend. NO new complain NEUROLOGICAL EXAMIANTION: Alert oriented x 3, speech is normal ( he and his feels speech is not 100% back to normal and feel slurring of speech) he has no difficulty repeating , naming objects no face asymmetry, eomi pupils reactive moving all extremity He feels completely normal, for coordination and speech LAB AND DATA: ct unremarkable, mri of brain showed right crebellar stroke and white matter disease mra is noraml carotid ultrasound left moderate stenosis , CTA is normal Assessment Right cerebellar stroke , risk factor include htn,hld and smoking and family history , back to normal Plan- -smoking cessation, life style modificaitons, stroke education discussed agin, He was given letter to advice two week off - continue aspirin and statin - H can be discharged today feel free to call me if any question Thanking you so much Bertrand Almanza MD
--- NOTE | 2018-03-07 09:10 | PN ---
Progress Note (short form) - Note Progress Note: NEUROSURGERY No new complaint No H/A, N/V, ataxia, dexterity issues and friendat bedside Feels well and back to baseline PE: AF, VSS General- unremarkable CN- intact; Motor-5/5; Sensation- intact LT; Cerebellar- intact B FTN Acute R cerebellar vermis ischemia, little chance for dramatic deterioration like with PICA infarcts Cardiac risk factor modification- weight reduction, health diet, smoking cessation, exercise PT for gait Stable neurologically Outpatient neurology f/u for chronic cerebrovascular dz management All questions answered
[2018-03-07] MEDS: ASPIRIN COATED 81 MG TABLET.EC PO SCH (09:11)
[2018-03-07 10:33] VITALS: BP 120/76; PULSE 73; TEMP 97.9
--- NOTE | 2018-03-07 10:37 | PN ---
Progress Note (short form) - Note Progress Note: cc: stroke s: no chest pain, dizziness, palps, edema. Current Medications Generic Name Dose Route Start Last Admin Trade Name Km PRN Reason Stop Dose Admin Aspirin 81 mg 03/03/18 10:00 03/07/18 09:11 Ecotrin - PO 81 mg DAILY [facility]PER Administration Atorvastatin Calcium 80 mg 03/02/18 22:00 03/06/18 22:03 Lipitor - PO 80 mg HS JASPER Administration Vital Signs Period Temp Pulse Resp BP Sys/Chung Pulse Ox Last 24 Hr 95.2 F-98.2 F 65-80 18-20 119-134/75-86 96 Constitutional: Yes: No Distress, Calm Eyes: Yes: Conjunctiva Clear Neck: Yes: Supple, Trachea Midline Respiratory: Yes: Regular, CTA Bilaterally Gastrointestinal: Yes: Normal Bowel Sounds, Soft Cardiovascular: Yes: Regular Rate and Rhythm JVD: No Heart Sounds: Yes: S1, S2 Edema: No Integumentary: Yes: WNL Neurological: Yes: Alert, Oriented Psychiatric: Yes: Alert, Oriented no jaundice diaphoresis Assessment/Plan EKG: sinus rhythm, no ischemic changes Echo: EF 50%, impaired relaxation, no sig valve dz Carotid dopplers: LICA 50-70% stenosis, consider CTA or MRA neck to further eval tele: sinus CTA neck: no ICA stenosis 42M h/o HTN, HLD p/w acute stroke Acute stroke - echo unremarkable for stroke etiology - tele no events, will pursue outpatient event monitor or ILR for further evaluation, follow up with cardiology - continue aspirin, statin - carotid ultrasound with 50-70% stenosis, CTA neck no significant stenosis - patient feels back to baseline HTN - controlled here, not on meds, monitor HLD - agree with high dose statin, continue cardiac beltran stable for dc
--- NOTE | 2018-03-07 10:55 | DS ---
Physical Examination Vital Signs: Vital Signs Temperature 36.6 C 03/07/18 10:00 Pulse Rate 73 03/07/18 10:00 Respiratory Rate 18 03/07/18 10:00 Blood Pressure 120/76 03/07/18 10:00 O2 Sat by Pulse Oximetry (%) 96 03/07/18 09:00 Constitutional: Yes: No Distress, Calm, Obese Cardiovascular: Yes: Regular Rate and Rhythm. No: Gallop, Murmur, Rub Respiratory: Yes: Regular, CTA Bilaterally. No: Rales, Rhonchi, Wheezes Gastrointestinal: Yes: Normal Bowel Sounds, Soft. No: Distention, Tenderness Extremities: Yes: WNL Edema: No Labs: CBC, BMP 03/04/18 07:00 03/05/18 06:40 Discharge Summary Reason For Visit: TRANSIENT ISCHEMIC ATTACK Current Active Problems CVA (cerebral vascular accident) (Acute) HLD (hyperlipidemia) (Acute) HTN (hypertension) (Acute) Left carotid stenosis (Acute) Hospital Course: (1) CVA (cerebral vascular accident) Code(s): I63.9 - CEREBRAL INFARCTION, UNSPECIFIED Qualifiers: CVA mechanism: embolism Precerebral and cerebral artery: cerebellar artery Laterality of affected vessel: right Qualified Code(s): I63.441 - Cerebral infarction due to embolism of right cerebellar artery (2) HTN (hypertension) Code(s): I10 - ESSENTIAL (PRIMARY) HYPERTENSION (3) HLD (hyperlipidemia) Code(s): E78.5 - HYPERLIPIDEMIA, UNSPECIFIED Mr Akers is a very pleasant 42 year old male who comes in and was found to have an acute CVA. He originally was thought to have a TIA and the head CT was negative. However an MRI was performed which showed and acute cerebellar CVA. He also had MRA as has family history of aneurysm and this was negative. He had an ECHO which was normal and a carotid ultrasound which showed a significant lesion. This was followed by a CTA which was negative. His lipid panel was checked and his LDL was elevated, he was placed on full strength lipitor. He was also placed on aspirin. Cardiology was consulted and he was monitored on telemetry. He has no signs of arrhythmia but will have outpatient follow up with an monitor. He is instructed to follow up with Dr Clark, cardiology, and neurology. He is cleared for discharge today by neurology and is safe for discharge home. Condition: Good - Instructions Diet, Activity, Other Instructions: avoid fried/greasy foods ambulate as tolerated, brisk walk/jog/ exercise at least 30 mins/day x 5 days please contact your pcp if any symptoms of muscle pain/aching, dark urine Seek medical care if you experience any chest pain, sob, unilateral weakness f/u as directed Referrals: Bertrand Almanza MD [Staff Physician] - 2 Weeks Jay Clark MD [Primary Care Provider] - 1 Week Krupa Bustos MD [Staff Physician] - 2 Weeks Disposition: HOME - Home Medications Comprehensive Discharge Medication List: Ambulatory Orders Aspirin Coated [Ecotrin -] 81 mg PO DAILY #30 tablet.ec 03/07/18 Atorvastatin Ca [Lipitor] 80 mg PO HS #30 tab 03/07/18
== END 2018-03-07 13:50 | disposition home or self-care (01) | DRG 45 ==
LOC: JER 10:33 → JERBED 14:02 → J4S 18:47 → OBSVTOIN 03-03 13:25
PROVIDERS: ADMIT Internal Medicine; ATTEND Internal Medicine
DX: I63.441 Cerebral infarction due to embolism of right cerebellar artery (principal); I10 Essential (primary) hypertension; E78.5 Hyperlipidemia, unspecified; R29.701 NIHSS score 1; F17.210 Nicotine dependence, cigarettes, uncomplicated; E66.9 Obesity, unspecified; Z68.34 Body mass index [BMI] 34.0-34.9, adult; I69.322 Dysarthria following cerebral infarction; G81.91 Hemiplegia, unspecified affecting right dominant side
CPT/HCPCS: 36415; 70450-TC; 70498-TC; 70544-TC; 70551-TC; 71045-TC-FY; 80048; 80053; 80061; 81003; 83036; 83721; 83735; 84100; 84443; 85025; 85610; 93005; 93010; 93306-TC; 93880-TC; 97116-GP; 97161-GP; 99283-25; G0378

== ENCOUNTER 2021-07-29 10:53 | Emergency (ER) | payer OTHER ==
[2021-07-29 11:05] VITALS: BP 132/87; PULSE 83; TEMP 98.2; BMI 33.6
[2021-07-29] MEDS ORDERED: LIDOCAINE 5% TOPICAL PATCH TP ONE (11:17)
[2021-07-29] MEDS ORDERED: KETOROLAC TROMETHAMINE 15 MG/ML VIAL IM ONE (11:17)
[2021-07-29] MEDS ORDERED: LIDOCAINE 5% TOPICAL PATCH ONE (11:24)
[2021-07-29] MEDS ORDERED: KETOROLAC TROMETHAMINE 15 MG/ML VIAL ONE (11:24)
[2021-07-29] MEDS ORDERED: LIDOCAINE PATCH REMOVAL MC ONE (22:00)
== END 2021-07-29 11:39 | disposition home or self-care (01) ==
LOC: JERFT 10:53
PROC: 3E0233Z Introduction of Anti-inflammatory into Muscle, Percutaneous Approach (ICD-10-PCS; principal; 2021-07-29)
DX: M54.41 Lumbago with sciatica, right side (principal)
CPT/HCPCS: 99284-25